=== PATIENT | female | born 1990 | race Two or more races ===

== ENCOUNTER 2022-06-05 17:10 | Emergency (ER) | payer OTHER ==
[~2022-06-05] VITALS: Ht 154.9 cm; Wt 62.6 kg
== END 2022-06-05 20:05 | disposition home or self-care (01) ==
LOC: ER 17:10
DX: M54.9 Dorsalgia, unspecified (principal); M54.2 Cervicalgia; R51.9 Headache, unspecified; V43.52XA Car driver injured in collision with other type car in traffic accident, initial encounter; Y93.9 Activity, unspecified; Y92.488 Other paved roadways as the place of occurrence of the external cause; Y99.9 Unspecified external cause status